=== PATIENT | male | born 1930 | race Caucasian/White ===

== ENCOUNTER → 2017-07-01 08:13 | Day surgery (SDC) | payer MEDICARE, BC ==
[2017-07-01 08:58] LABS: Hematocrit 37 % (42-52); Hemoglobin 12.2 g/dl (14.0-18.0); Mean Corpuscular HGB Conc 33 g/dl (31-36); Mean Corpuscular Hemoglobin 35 pg (27-31); Mean Platelet Volume 9 um3 (7.4-10.4); Red Blood Count 3.48 10^6/ul (4.0-5.4); Red Cell Distribution Width 14 % (10.5-15); White Blood Count 5.8 10^3/ul (3.5-10.8)
[2017-07-01 08:59] LABS: Comments Flag Yes
[2017-07-01 09:00] LABS: Mean Corpuscular Volume 106 fL (80-94)
[2017-07-01 09:15] LABS: BUN/Creatinine Ratio 19.1 (8-20); Calcium 9.4 mg/dL (8.6-10.3); EGFR African American 97.4 (>60); EGFR Non-African American 75.7 (>60); Potassium 4.1 mmol/L (3.5-5.0)
== END | disposition home or self-care (01) ==
LOC: CHICATH 08:13
PROVIDERS: ATTEND Internal Medicine Cardiovascular Disease
DX: I25.119 Atherosclerotic heart disease of native coronary artery with unspecified angina pectoris (principal); I10 Essential (primary) hypertension; E78.5 Hyperlipidemia, unspecified; E11.69 Type 2 diabetes mellitus with other specified complication; R42 Dizziness and giddiness; Z79.899 Other long term (current) drug therapy; R07.9 Chest pain, unspecified
CPT/HCPCS: 36415; 80048; 85025

== ENCOUNTER → 2018-11-11 10:27 | Day surgery (SDC) | payer MEDICARE, BC ==
[~2018-11-11 10:27] MED LIST: Adenosine* 3 MG/ML VIAL ONE; Heparin(*) 1000 UNIT/ML 10 ML VIAL CATH LAB IV ONE; Iohexol 350 (CONTRAST) 200 ML MDV IV ONE; Lidocaine 1% INJ* 10 MG/ML 30 ML SDV ONE; Midazolam* 1 MG/ML 5 ML VIAL (5 MG) ONE; VERAPAMIL 2.5 MG/ML 2 ML VIAL ** 5 mg/2 ml ONE; fentaNYL* 50 MCG/ML 2 ML VIAL (100 MCG VIAL) ONE; nitroGLYCERIN DRIP* 25,000 MCG/250 ML BTL ONE
--- NOTE | 2018-11-11 15:24 | CATH ---
"*[facility]* [place] [address] Main: [phone] [email or web address] Cardiac Catheterization Patient: Marco Brand : 1930 Accession#: Age: 88 Account#: Gender: M Study Date/Time: Nov 11 2018 12:59PM Aviation Safety Equipment Technician: Charlie Ridley Ordering Physician: Charlie Ridley Referring Physician: Charlie Ridley Marino, Brian Procedures performed: - Left coronary angiography. - Right coronary angiography. - Left heart catheterization with angiography. - Pressure flow reserve measurement. Summary: 1. Left main: Distal vessel lesion: There is a 20% stenosis. 2. LAD: The proximal vessel is moderately calcified. Ostial lesion: There is a 45% stenosis. Mid-vessel lesion: There is a 50% stenosis. FFR analysis across both lesions suggest the lesions are NOT hemodynamically significant. 3. Left ventricle: Systolic function is normal. The estimated ejection fraction is 60-65%. Wall motion is normal; there are no regional wall motion abnormalities. Recommendations: Continue medical management with follow up with Dr. Cerda. Indications: Angina refractory to medical management. History: Risk factors: Hypertension. Diabetes mellitus; on therapy with diet. Dyslipidemia. Family history is significant for coronary artery disease. Medications: Beta blockers. Calcium channel blockers. Nitrates. Labs, prior tests, procedures, and surgery: Blood tests: International normalized ratio (INR) of 0.96. Serum potassium (K) of 4.3 mEq/l. Serum sodium (Na) of 140 mEq/l. Serum creatinine (current admission) of 0.88 mg/dl. Blood urea nitrogen of 22 mg/dl. Glucose of 109 mg/dl. Platelet count of 125 th/ul. White blood cell count (WBC) of 0.01 th/ul. Red blood cell count (RBC) of 3830 th/ul. Hematocrit of 39 %. Hemoglobin (pre-procedure) of 13 g/dl. Study data: Study status: Cardiac cath: elective. Location: Catheterization laboratory. Consent: The risks, benefits, and alternatives to the procedure were explained to the patient and/or their healthcare inbound sales representative and written informed consent was obtained. All available pre-procedure labs were reviewed. Height: 170.2 cm. 67 in. Weight: 76.4 kg. 168.1 lb. Body surface area: 1.91 m^2. Body mass index: 26.4 kg/m^2. Procedure: 1. Initial setup. The patient was brought to the laboratory. Surface ECG leads, blood pressure measurements, and pulse oximetric signals were monitored. A baseline seven lead ECG was recorded. A time out was observed per protocol. 2. Skin preparation. The planned puncture sites were prepped and draped in the usual sterile manner. 3. Local anesthesia. 1% lidocaine was administered. 4. Local anesthesia. 1% lidocaine (3 ml) was administered. 5. Right radial artery access. A 6F Glidesheath Slender sheath was advanced into the vessel andtheradialartery ocktail was given (3000units heparin, 300 microgram nitroglycerin, 3mg verapmil). 6. Selective left coronary angiography. A 5F Radial Tig 4.5 catheter was advanced into the left coronary vessel ostium under fluoroscopic guidance. Contrast was injected. Images were obtained in multiple projections. 7. Selective right coronary angiography. A 5F Radial Tig 4.5 catheter was advanced into the right coronary vessel ostium under fluoroscopic guidance. Contrast was injected. Images were obtained in multiple projections. 8. Left heart catheterization with angiography. A 5F PIG Short Radial catheter was advanced across the aortic valve to the left ventricle under fluoroscopic guidance. 28 ml of contrast was injected at 14 ml/s. 9. ACT was 172 sec. In light of proceeding to FFR , additional bolus of 3500 unit of heparin followed by repeat ACT -253sec. 10. Pressure derived flow reserve measurement for the midLAD. Flow reserve was measured using a 0.14 Pressure Wire X pressure-monitoring guide-wire. Maximal hyperemia was achieved with 72mcgintracoronary(IC) ADENOSINE (Flow Wire). The flow reserve (pressure-derived FFR) was calculated to be 0.9. 11. Pressure derived flow reserve measurement. Flow reserve was measured using a 0.14 Pressure Wire X pressure-monitoring guide-wire. Maximal hyperemia was achieved with 96mcgintracoronary(IC) ADENOSINE (Flow Wire). The flow reserve (pressure-derived FFR) was calculated to be 0.87. 12. Right radial artery hemostasis. Vessel closure was achieved with a Regular Vasc Band device. The reverse barbeau was and A to B. Study completion: Minimal estimated blood loss. All catheters inserted during the procedure were removed. There were no apparent complications. Administered medications: (Radial) Nitroglycerin, 300mcg, intra-arterially. (Radial) Verapamil, 3mg, intra-arterially. (Radial) Heparin, 3,000units, intra-arterially. Heparin, 3,500units, IV. (IC) ADENOSINE (Flow Wire), for a total dose of 168mcg, into the coronary artery. Contrast: Omnipaque 350 155 ml (total dose). Omnipaque 350 245 ml (wasted). Radiation: Fluoroscopy time: 17.4 min. Fluoroscopy dose: 149.8 cGy. Discharge: The patient tolerated the procedure well and was discharged from the lab in stable condition. Findings Coronary arteries: The coronary circulation is left dominant. The left main has a normal course, is of the usual length, and bifurcates normally into the LAD and circumflex. The left anterior descending gives rise to 2 diagonals and multiple septal perforators. The distal left anterior descending coronary does not extend to the inferior apical region (This area is supplied by a large LPDA). The left circumflex gives rise to 3 obtuse marginals, 2 posterolaterals, and the posterior descending artery. Left main: Distal vessel lesion: There is a 20% stenosis. LAD: The proximal vessel is moderately calcified. Ostial lesion: There is a 45% stenosis. Mid-vessel lesion: There is a 50% stenosis. FFR analysis across both lesions suggest the lesions are NOT hemodynamically significant. Results of FFR of both mid and proximal left anterior descending coronary lesions: With 72 micrograms adenosine - 90 With 96 micrograms adenosine - .87. Left circumflex: The proximal vessel has minor luminal irregularities. Left posterior descending: Unusually long. Right coronary: Minor luminal irregularities. The right is nondominant. Left ventricle: Systolic function is normal. The estimated ejection fraction is 60-65%. Wall motion is normal; there are no regional wall motion abnormalities. Hemodynamics: + + + |Stage description |Condition 1 - | + + + |LV pressure s/d, ed |163/5, 32, dP/oa=7918 mm Hg/s| + + + |Arterial pressure s/d (m)|164/61 (101) | + + + Prepared and electronically signed by Charlie Ridley 11/11/2018 15:21"
[2018-11-11 18:12] VITALS: BP 125/60
== END | disposition home or self-care (01) ==
LOC: CHICATH 10:27
PROVIDERS: ATTEND Internal Medicine Cardiovascular Disease
DX: I25.119 Atherosclerotic heart disease of native coronary artery with unspecified angina pectoris (principal); R07.9 Chest pain, unspecified; G47.33 Obstructive sleep apnea (adult) (pediatric); Z79.899 Other long term (current) drug therapy; M35.3 Polymyalgia rheumatica; M06.9 Rheumatoid arthritis, unspecified; Z87.891 Personal history of nicotine dependence; E11.69 Type 2 diabetes mellitus with other specified complication; E78.5 Hyperlipidemia, unspecified; R42 Dizziness and giddiness
CPT/HCPCS: 76937; 85347; 93458; C1769; C1887; J0153; J1644; J2250; J3010